=== PATIENT | male | born 1985 | race Caucasian/White ===

== ENCOUNTER 2017-03-11 16:56 | Emergency (ER) | payer MEDICARE, OTHER ==
[~2017-03-11] VITALS: Ht 182.9 cm; Wt 59.9 kg
[~2017-03-11 16:56] MED LIST: ALBU90OI INH; ANDROGEL1.25 GM TOP; AZIT250 PO; Amoxicillin500 MG PO; Ativan1 MG PO; CIPRO500 MG PO; CLOT10 SS; DIAZ5 PO; DOXY100 PO; Desyrel50 MG PO; Dilantin 100 m100 MG PO; EPIN.3I IM; Ensure Plus237 ML PO; HYDR1TAB94 PO; IBUP800 PO; Keppra1000 MG PO; LEVE500 PO; LISI20 PO; LORA.5 PO; LORA1 PO; METPRE4DP PO; NICO7 TOP; Norco 7.5-3251 EACH PO; ONDA4ODT MM; ONDA8 PO; PARO10 PO; PHENY100ER PO; PRODEXEL PO; SULTRIDS PO; TIVICAY50 MG PO; Truvada Tablet1 EACH PO; Ventolin Soln3 ML INH; Vibramycin100 MG PO; Zithromax250 MG PO; [UNRECOGNIZED DRUG - OTHER] TOP
[2017-03-11 18:03] LABS: Source, Urine Clean Catch
[2017-03-11 18:10] LABS: Appearance, Urine Cloudy (Clear); Blood, Urine 4+ (Neg); Color, Urine Amber (P-Yellow); Glucose Qualitative, Urine Neg (Neg); Ketones, Urine 1+ (Neg); Leukocyte Esterase, Urine 3+ (Neg); Nitrite, Urine Pos (Neg); Protein, Urine 3+ (Neg); Urobilinogen, Urine 3+ (Normal)
[2017-03-11 18:13] LABS: Bilirubin, Urine 1+ (Neg)
[2017-03-11 18:15] LABS: Bacteria Many /hpf; Red Blood Cells, Urine 0-2 /hpf (0-2); Squamous Epithelial Cells Not Seen /hpf (Few); White Blood Cells, Urine TNTC /hpf (0-5)
[2017-03-11 18:25] LABS: BASOPHILS ABSOLUTE AUTO 0.02 K/mm3 (0.00-0.23); BASOPHILS PERCENT AUTO 0 % (0-2); EOSINOPHILS ABSOLUTE AUTO 0.08 K/mm3 (0.00-0.68); EOSINOPHILS PERCENT AUTO 1 % (0-6); Hematocrit 41.6 % (37.0-53.0); Hemoglobin 15.3 g/dL (13.5-17.5); IMMATURE GRAN ABSOLUTE AUTO 0.04 K/mm3 (0.00-0.10); IMMATURE GRAN PERCENT AUTO 0 % (0-1); LYMPHOCYTES PERCENT AUTO 12 % (21-46); MONOCYTES ABSOLUTE AUTO 1.27 K/mm3 (0.16-1.47); MONOCYTES PERCENT AUTO 10 % (4-13); Mean Corpuscular HGB 33.9 pg (26.0-34.0); Mean Corpuscular HGB Conc 36.8 g/dL (31.5-36.5); Mean Corpuscular Volume 92 fL (80-100); Mean Platelet Volume 9.5 fL (9.1-12.4); NEUTROPHILS ABSOLUTE AUTO 10.27 K/mm3 (1.96-9.15); NEUTROPHILS PERCENT AUTO 77 % (41-73); Platelet Count 253 K/mm3 (150-400); RDW Coefficient Variation 12.4 % (11.7-14.2); RDW Standard Deviation 42.2 fL (35.1-46.3); Red Blood Cell Count 4.51 M/mm3 (4.30-5.90); White Blood Cell Count 13.28 K/mm3 (4.00-11.30)
[2017-03-11 18:36] LABS: Alanine Aminotransfer (ALT/SGP 18 U/L (12-78); Albumin, Blood 4.1 g/dL (3.4-5.0); Albumin/Globulin Ratio 1.1 (0.8-1.8); Alk Phos 83 U/L (50-136); Anion Gap 10 mmol/L (6-16); Aspartate Aminotrans (AST/SGOT 16 U/L (12-37); Bilirubin, Total 1.2 mg/dL (0.1-1.0); Blood Urea Nitrogen 15 mg/dL (8-24); Bun/Creatinine Ratio 13.4 (12.0-20.0); CO2, Blood 24 mmol/L (21-32); Chloride, Blood 99 mmol/L (98-108); Creatinine, Blood 1.12 mg/dL (0.60-1.20); Globulin, Blood 3.7 g/dL (2.2-4.0); Glomerular Filtration Rate >60 (60-); Glucose, Blood 103 mg/dL (70-99); Potassium, Blood 3.7 mmol/L (3.5-5.5); Sodium, Blood 133 mmol/L (136-145); Total Protein, Blood 7.8 g/dL (6.4-8.2)
[2017-03-11] MEDS ORDERED: Cipro500 MG PO (20:17)
[2017-03-11] MEDS ORDERED: Norco 5-325 Ta1 EACH PO (20:19)
== END 2017-03-11 20:40 | disposition home or self-care (01) ==
LOC: ER 16:56
PROVIDERS: Physician Assistant
DX: N10 Acute pyelonephritis (principal); F17.200 Nicotine dependence, unspecified, uncomplicated; B20 Human immunodeficiency virus [HIV] disease; D72.829 Elevated white blood cell count, unspecified; R11.2 Nausea with vomiting, unspecified; Z88.5 Allergy status to narcotic agent; Z91.030 Bee allergy status; Z88.8 Allergy status to other drugs, medicaments and biological substances; Z79.899 Other long term (current) drug therapy; Z87.01 Personal history of pneumonia (recurrent)
CPT/HCPCS: 36415; 76770; 80053; 81000; 81001; 85025; 87077; 87086; 87186; 96361; 96365; 96375; 96376; 99284; J0696; J2405; J3010; J7030

== ENCOUNTER 2017-09-17 14:44 | Emergency (ER) | payer MEDICARE, OTHER ==
[~2017-09-17] VITALS: Ht 182.9 cm; Wt 59.0 kg
[~2017-09-17 14:44] MED LIST changes: +Cipro500 MG PO; +Norco 5-325 Ta1 EACH PO
[2017-09-17] MEDS ORDERED: Pepcid20 MG PO (15:30)
[2017-09-17] MEDS ORDERED: (None)20 M1 PO (15:30)
== END 2017-09-17 15:41 | disposition home or self-care (01) ==
LOC: ER 14:44
DX: T63.441A Toxic effect of venom of bees, accidental (unintentional), initial encounter (principal); F17.210 Nicotine dependence, cigarettes, uncomplicated; Z91.030 Bee allergy status; Z88.5 Allergy status to narcotic agent; Z88.8 Allergy status to other drugs, medicaments and biological substances; Z79.899 Other long term (current) drug therapy
CPT/HCPCS: 96372; 99283; J2930; Q0163

== ENCOUNTER → 2018-05-07 | Outpatient (CLI) | payer MEDICARE, OTHER ==
[~2018-05-07] MED LIST changes: +(None)20 M1 PO; +Pepcid20 MG PO
[2018-05-07 13:21] LABS: Appearance, Urine Clear (Clear); Bilirubin, Urine Neg (Neg); Blood, Urine Neg (Neg); Color, Urine Yellow (P-Yellow); Glucose Qualitative, Urine Neg (Neg); Ketones, Urine Neg (Neg); Leukocyte Esterase, Urine Neg (Neg); Nitrite, Urine Neg (Neg); Protein, Urine Neg (Neg); Specific Gravity, Urine 1.005 (1.003-1.022); Urobilinogen, Urine NORM (Normal)
== END | disposition home or self-care (01) ==
LOC: LAB SRC 09:15 → LAB SHORT 09:15
PROVIDERS: Registered Nurse
DX: N23 Unspecified renal colic (principal)
CPT/HCPCS: 81003

== ENCOUNTER 2018-05-15 19:09 | Emergency (ER) | payer MEDICARE, OTHER ==
[~2018-05-15] VITALS: Ht 175.3 cm; Wt 57.6 kg
[2018-05-15 19:56] LABS: Influenza A Negative (NEGATIVE); Influenza B Negative (NEGATIVE)
[2018-05-15] MEDS ORDERED: Zithromax250 MG PO (20:36)
== END 2018-05-15 20:50 | disposition home or self-care (01) ==
LOC: ER 19:09
PROVIDERS: Physician Assistant
DX: J44.1 Chronic obstructive pulmonary disease with (acute) exacerbation (principal); B20 Human immunodeficiency virus [HIV] disease; F17.210 Nicotine dependence, cigarettes, uncomplicated; Z88.5 Allergy status to narcotic agent; Z91.030 Bee allergy status; Z88.8 Allergy status to other drugs, medicaments and biological substances; Z79.899 Other long term (current) drug therapy
CPT/HCPCS: 71046; 87804; 94640; 99285-25

== ENCOUNTER 2018-10-02 00:26 | Day surgery (SDC) | payer MEDICARE, OTHER ==
[2018-10-02] MEDS ORDERED: ONDA8 PO (09:49)
== END 2018-10-02 09:56 | disposition home or self-care (01) ==
LOC: ATC 00:26
DX: R42 Dizziness and giddiness (principal); M85.89 Other specified disorders of bone density and structure, multiple sites; I10 Essential (primary) hypertension; B20 Human immunodeficiency virus [HIV] disease; J45.909 Unspecified asthma, uncomplicated; F17.210 Nicotine dependence, cigarettes, uncomplicated; Z88.5 Allergy status to narcotic agent; Z88.8 Allergy status to other drugs, medicaments and biological substances; Z94.81 Bone marrow transplant status
CPT/HCPCS: 36415; 80400; 82533; 96372; J0834

== ENCOUNTER 2018-10-24 11:14 | Emergency (ER) | payer MEDICARE, OTHER | END 2018-10-24 12:02 | disposition left against medical advice (07) | LOC: ER 11:14 | DX: Z53.21 Procedure and treatment not carried out due to patient leaving prior to being seen by health care provider (principal); R07.9 Chest pain, unspecified ==

== ENCOUNTER → 2019-03-05 | Outpatient (CLI) | payer MEDICARE, OTHER ==
[2019-03-05 09:54] LABS: Source, Urine Clean Catch
[2019-03-05 12:50] LABS: Appearance, Urine Clear (Clear); Bilirubin, Urine Neg (Neg); Blood, Urine Neg (Neg); Color, Urine Yellow (P-Yellow); Glucose Qualitative, Urine Neg (Neg); Ketones, Urine Neg (Neg); Leukocyte Esterase, Urine Neg (Neg); Nitrite, Urine Neg (Neg); Protein, Urine 1+ (Neg); Specific Gravity, Urine 1.015 (1.003-1.022); Urobilinogen, Urine NORM (Normal)
== END | disposition home or self-care (01) ==
LOC: LAB SHORT 09:52 → LAB SRC 09:52 → LAB FUT 03-03 15:40 → EDSTATUS 03-03 15:40
PROVIDERS: Urology
DX: R31.0 Gross hematuria (principal)
CPT/HCPCS: 87086; 88108

== ENCOUNTER 2019-04-10 06:54 | Emergency (ER) | payer MEDICARE, OTHER ==
[~2019-04-10] VITALS: Ht 182.9 cm; Wt 56.7 kg
[2019-04-10 07:23] LABS: BASOPHILS ABSOLUTE AUTO 0.09 K/mm3 (0.00-0.23); BASOPHILS PERCENT AUTO 1 % (0-2); EOSINOPHILS ABSOLUTE AUTO 0.04 K/mm3 (0.00-0.68); EOSINOPHILS PERCENT AUTO 0 % (0-6); Hematocrit 46.9 % (37.0-53.0); Hemoglobin 16.4 g/dL (13.5-17.5); IMMATURE GRAN PERCENT AUTO 1 % (0-1); LYMPHOCYTES ABSOLUTE AUTO 2.28 K/mm3 (0.84-5.20); LYMPHOCYTES PERCENT AUTO 19 % (21-46); MONOCYTES ABSOLUTE AUTO 0.84 K/mm3 (0.16-1.47); MONOCYTES PERCENT AUTO 7 % (4-13); Mean Corpuscular HGB 33.9 pg (26.0-34.0); Mean Corpuscular Volume 97 fL (80-100); Mean Platelet Volume 9.7 fL (9.1-12.4); NEUTROPHILS ABSOLUTE AUTO 8.46 K/mm3 (1.96-9.15); NEUTROPHILS PERCENT AUTO 72 % (41-73); Platelet Count 230 K/mm3 (150-400); RDW Coefficient Variation 12.3 % (11.7-14.2); RDW Standard Deviation 43.8 fL (35.1-46.3); Red Blood Cell Count 4.84 M/mm3 (4.30-5.90); White Blood Cell Count 11.81 K/mm3 (4.00-11.30)
[2019-04-10 07:47] LABS: Alanine Aminotransfer (ALT/SGP 26 U/L (12-78); Albumin, Blood 4.7 g/dL (3.4-5.0); Anion Gap 14 mmol/L (6-16); Aspartate Aminotrans (AST/SGOT 32 U/L (12-37); Blood Urea Nitrogen 12 mg/dL (8-24); CO2, Blood 18 mmol/L (21-32); Calcium, Blood 9.5 mg/dL (8.5-10.1); Chloride, Blood 109 mmol/L (98-108); Creatinine, Blood 1.09 mg/dL (0.60-1.20); Glomerular Filtration Rate >60 (60-); Glucose, Blood 105 mg/dL (70-99); Potassium, Blood 3.2 mmol/L (3.5-5.5); Sodium, Blood 141 mmol/L (136-145)
[2019-04-10 07:48] LABS: Albumin/Globulin Ratio 1.4 (0.8-1.8); Alk Phos 71 U/L (50-136); Bilirubin, Total 0.9 mg/dL (0.1-1.0); Globulin, Blood 3.3 g/dL (2.2-4.0)
== END 2019-04-10 09:13 | disposition home or self-care (01) ==
LOC: ER 06:54
PROVIDERS: Emergency Medicine
DX: R56.9 Unspecified convulsions (principal); E87.6 Hypokalemia; F15.90 Other stimulant use, unspecified, uncomplicated; B20 Human immunodeficiency virus [HIV] disease; Z88.5 Allergy status to narcotic agent; Z79.899 Other long term (current) drug therapy
CPT/HCPCS: 71045; 80053; 85025; 93005; 93010; 96360; 99284-25; J7030

== ENCOUNTER 2019-04-30 02:35 | Emergency (ER) | payer MEDICARE, OTHER ==
[~2019-04-30] VITALS: Ht 182.9 cm; Wt 56.7 kg
[2019-04-30 02:54] LABS: BASOPHILS ABSOLUTE AUTO 0.07 K/mm3 (0.00-0.23); BASOPHILS PERCENT AUTO 1 % (0-2); EOSINOPHILS ABSOLUTE AUTO 0.39 K/mm3 (0.00-0.68); EOSINOPHILS PERCENT AUTO 5 % (0-6); Hematocrit 43.5 % (37.0-53.0); Hemoglobin 15.3 g/dL (13.5-17.5); IMMATURE GRAN ABSOLUTE AUTO 0.01 K/mm3 (0.00-0.10); IMMATURE GRAN PERCENT AUTO 0 % (0-1); LYMPHOCYTES ABSOLUTE AUTO 3.87 K/mm3 (0.84-5.20); LYMPHOCYTES PERCENT AUTO 45 % (21-46); MONOCYTES ABSOLUTE AUTO 0.53 K/mm3 (0.16-1.47); MONOCYTES PERCENT AUTO 6 % (4-13); Mean Corpuscular HGB 33.6 pg (26.0-34.0); Mean Corpuscular HGB Conc 35.2 g/dL (31.5-36.5); Mean Corpuscular Volume 96 fL (80-100); Mean Platelet Volume 10.1 fL (9.1-12.4); NEUTROPHILS ABSOLUTE AUTO 3.76 K/mm3 (1.96-9.15); NEUTROPHILS PERCENT AUTO 44 % (41-73); Platelet Count 244 K/mm3 (150-400); RDW Coefficient Variation 12.2 % (11.7-14.2); RDW Standard Deviation 42.5 fL (35.1-46.3); Red Blood Cell Count 4.55 M/mm3 (4.30-5.90); White Blood Cell Count 8.63 K/mm3 (4.00-11.30)
[2019-04-30] MEDS ORDERED: BIKTARVY 50-201 EACH PO (03:10)
[2019-04-30] MEDS ORDERED: ZOLOFT25 MG PO (03:10)
[2019-04-30 03:12] LABS: Alanine Aminotransfer (ALT/SGP 23 U/L (12-78); Albumin, Blood 4.2 g/dL (3.4-5.0); Albumin/Globulin Ratio 1.4 (0.8-1.8); Alk Phos 76 U/L (50-136); Anion Gap 11 mmol/L (6-16); Aspartate Aminotrans (AST/SGOT 36 U/L (12-37); Bilirubin, Total 0.4 mg/dL (0.1-1.0); Blood Urea Nitrogen 9 mg/dL (8-24); Bun/Creatinine Ratio 8.2 (12.0-20.0); CO2, Blood 21 mmol/L (21-32); Calcium, Blood 9.1 mg/dL (8.5-10.1); Chloride, Blood 108 mmol/L (98-108); Ethanol (Alcohol), Blood, Med 135 mg/dL; Globulin, Blood 3.1 g/dL (2.2-4.0); Glomerular Filtration Rate >60 (60-); Glucose, Blood 92 mg/dL (70-99); Potassium, Blood 3.9 mmol/L (3.5-5.5); Sodium, Blood 140 mmol/L (136-145); Total Protein, Blood 7.3 g/dL (6.4-8.2)
== END 2019-04-30 04:09 | disposition home or self-care (01) ==
LOC: ER 02:35
PROVIDERS: Emergency Medicine
DX: F44.5 Conversion disorder with seizures or convulsions (principal); B20 Human immunodeficiency virus [HIV] disease; F17.210 Nicotine dependence, cigarettes, uncomplicated
CPT/HCPCS: 80053; 85025; G0480

== ENCOUNTER 2019-06-25 13:59 | Emergency (ER) | payer MEDICARE, OTHER ==
[~2019-06-25] VITALS: Ht 182.9 cm; Wt 49.9 kg
[~2019-06-25 13:59] MED LIST changes: +BIKTARVY 50-201 EACH PO; +ZOLOFT25 MG PO
== END 2019-06-25 14:37 | disposition home or self-care (01) ==
LOC: ER 13:59
DX: F44.5 Conversion disorder with seizures or convulsions (principal); F17.210 Nicotine dependence, cigarettes, uncomplicated; Z91.030 Bee allergy status; Z88.5 Allergy status to narcotic agent; Z88.8 Allergy status to other drugs, medicaments and biological substances; Z79.899 Other long term (current) drug therapy
CPT/HCPCS: 99284

== ENCOUNTER 2019-09-01 01:37 | Emergency (ER) | payer MEDICARE, OTHER ==
[~2019-09-01] VITALS: Ht 182.9 cm; Wt 53.1 kg
[2019-09-01] MEDS ORDERED: SERT50 PO (01:54)
[2019-09-01 02:40] LABS: BASOPHILS ABSOLUTE AUTO 0.04 K/mm3 (0.00-0.23); BASOPHILS PERCENT AUTO 1 % (0-2); EOSINOPHILS ABSOLUTE AUTO 0.21 K/mm3 (0.00-0.68); EOSINOPHILS PERCENT AUTO 4 % (0-6); Hematocrit 39.6 % (37.0-53.0); Hemoglobin 13.7 g/dL (13.5-17.5); IMMATURE GRAN ABSOLUTE AUTO 0.01 K/mm3 (0.00-0.10); IMMATURE GRAN PERCENT AUTO 0 % (0-1); LYMPHOCYTES ABSOLUTE AUTO 1.28 K/mm3 (0.84-5.20); LYMPHOCYTES PERCENT AUTO 21 % (21-46); MONOCYTES ABSOLUTE AUTO 0.43 K/mm3 (0.16-1.47); MONOCYTES PERCENT AUTO 7 % (4-13); Mean Corpuscular HGB 31.9 pg (26.0-34.0); Mean Corpuscular HGB Conc 34.6 g/dL (31.5-36.5); Mean Corpuscular Volume 92 fL (80-100); Mean Platelet Volume 9.9 fL (9.1-12.4); NEUTROPHILS ABSOLUTE AUTO 4.07 K/mm3 (1.96-9.15); NEUTROPHILS PERCENT AUTO 67 % (41-73); Platelet Count 150 K/mm3 (150-400); RDW Coefficient Variation 12.4 % (11.7-14.2); RDW Standard Deviation 42.3 fL (35.1-46.3); Red Blood Cell Count 4.29 M/mm3 (4.30-5.90); White Blood Cell Count 6.04 K/mm3 (4.00-11.30)
[2019-09-01 02:57] LABS: Alanine Aminotransfer (ALT/SGP 17 U/L (12-78); Albumin, Blood 3.9 g/dL (3.4-5.0); Albumin/Globulin Ratio 1.6 (0.8-1.8); Alk Phos 53 U/L (50-136); Anion Gap 3 mmol/L (6-16); Aspartate Aminotrans (AST/SGOT 21 U/L (12-37); Bilirubin, Total 0.5 mg/dL (0.1-1.0); Blood Urea Nitrogen 8 mg/dL (8-24); Bun/Creatinine Ratio 7.4 (12.0-20.0); CO2, Blood 28 mmol/L (21-32); Calcium, Blood 8.3 mg/dL (8.5-10.1); Chloride, Blood 110 mmol/L (98-108); Creatinine, Blood 1.08 mg/dL (0.60-1.20); Globulin, Blood 2.5 g/dL (2.2-4.0); Glomerular Filtration Rate >60 (60-); Glucose, Blood 114 mg/dL (70-99); Potassium, Blood 3.2 mmol/L (3.5-5.5); Sodium, Blood 141 mmol/L (136-145); Total Protein, Blood 6.4 g/dL (6.4-8.2)
[2019-09-01] MEDS ORDERED: HYDHCL25 PO (03:02)
== END 2019-09-01 03:14 | disposition home or self-care (01) ==
LOC: ER 01:37
PROVIDERS: Emergency Medicine
DX: R56.9 Unspecified convulsions (principal); F41.9 Anxiety disorder, unspecified; Z91.030 Bee allergy status; Z88.8 Allergy status to other drugs, medicaments and biological substances; Z79.899 Other long term (current) drug therapy; B20 Human immunodeficiency virus [HIV] disease; F17.210 Nicotine dependence, cigarettes, uncomplicated
CPT/HCPCS: 80053; 83735; 85025; 99284

== ENCOUNTER 2019-11-26 19:48 | Emergency (ER) | payer MEDICARE, OTHER | END 2019-11-26 22:51 | disposition home or self-care (01) | LOC: ER 19:48 | DX: L73.9 Follicular disorder, unspecified (principal); F17.210 Nicotine dependence, cigarettes, uncomplicated; Z21 Asymptomatic human immunodeficiency virus [HIV] infection status; Z91.030 Bee allergy status; Z88.5 Allergy status to narcotic agent; Z88.8 Allergy status to other drugs, medicaments and biological substances; Z79.899 Other long term (current) drug therapy ==

== ENCOUNTER 2020-02-07 18:06 | Emergency (ER) | payer MEDICARE, OTHER ==
[~2020-02-07] VITALS: Ht 182.9 cm; Wt 54.4 kg
[~2020-02-07 18:06] MED LIST changes: +BIKTARVY 50-201 EAC1 PO; +HYDHCL25 PO; +SERT50 PO; +TRAZ100 PO
[2020-02-07] MEDS ORDERED: LORA2 PO (18:17)
== END 2020-02-07 18:33 | disposition home or self-care (01) ==
LOC: ER 18:06
DX: F44.5 Conversion disorder with seizures or convulsions (principal); F17.210 Nicotine dependence, cigarettes, uncomplicated; Z21 Asymptomatic human immunodeficiency virus [HIV] infection status
CPT/HCPCS: 96374; 99284-25; J2060

== ENCOUNTER 2020-03-25 22:39 | Emergency (ER) | payer MEDICARE, OTHER ==
[~2020-03-25] VITALS: Ht 182.9 cm; Wt 65.8 kg
[~2020-03-25 22:39] MED LIST changes: +LORA2 PO
[2020-03-25 23:06] LABS: BASOPHILS ABSOLUTE AUTO 0.07 K/mm3 (0.00-0.23); BASOPHILS PERCENT AUTO 1 % (0-2); EOSINOPHILS ABSOLUTE AUTO 0.17 K/mm3 (0.00-0.68); EOSINOPHILS PERCENT AUTO 2 % (0-6); Hematocrit 40.6 % (37.0-53.0); IMMATURE GRAN ABSOLUTE AUTO 0.01 K/mm3 (0.00-0.10); IMMATURE GRAN PERCENT AUTO 0 % (0-1); LYMPHOCYTES PERCENT AUTO 53 % (21-46); MONOCYTES ABSOLUTE AUTO 0.47 K/mm3 (0.16-1.47); MONOCYTES PERCENT AUTO 7 % (4-13); Mean Corpuscular HGB 32.1 pg (26.0-34.0); Mean Corpuscular HGB Conc 34.5 g/dL (31.5-36.5); Mean Corpuscular Volume 93 fL (80-100); Mean Platelet Volume 9.4 fL (9.1-12.4); NEUTROPHILS ABSOLUTE AUTO 2.63 K/mm3 (1.96-9.15); NEUTROPHILS PERCENT AUTO 37 % (41-73); Platelet Count 219 K/mm3 (150-400); RDW Coefficient Variation 12.6 % (11.7-14.2); RDW Standard Deviation 43.9 fL (35.1-46.3); Red Blood Cell Count 4.36 M/mm3 (4.30-5.90); White Blood Cell Count 7.15 K/mm3 (4.00-11.30)
[2020-03-25 23:19] LABS: Alanine Aminotransfer (ALT/SGP 22 U/L (12-78); Albumin, Blood 4.1 g/dL (3.4-5.0); Albumin/Globulin Ratio 1.5 (0.8-1.8); Alk Phos 60 U/L (50-136); Anion Gap 12 mmol/L (6-16); Aspartate Aminotrans (AST/SGOT 21 U/L (12-37); Bilirubin, Total 0.7 mg/dL (0.1-1.0); Blood Urea Nitrogen 11 mg/dL (8-24); Bun/Creatinine Ratio 8.2 (12.0-20.0); CO2, Blood 22 mmol/L (21-32); Calcium, Blood 8.6 mg/dL (8.5-10.1); Chloride, Blood 108 mmol/L (98-108); Creatinine, Blood 1.34 mg/dL (0.60-1.20); Ethanol (Alcohol), Blood, Med <3 mg/dL; Globulin, Blood 2.7 g/dL (2.2-4.0); Glomerular Filtration Rate 50 (60-); Glucose, Blood 66 mg/dL (70-99); Potassium, Blood 3.2 mmol/L (3.5-5.5); Sodium, Blood 142 mmol/L (136-145); Total Protein, Blood 6.8 g/dL (6.4-8.2)
[2020-03-25] MEDS ORDERED: BIKTARVY 50-201 EAC1 PO (23:24)
[2020-03-25] MEDS ORDERED: Ativan1 MG PO (23:25)
[2020-03-26 00:19] LABS: U Amphetamine Screen Not Detected; U Barbituate Screen Not Detected; U Benzodiazapine Screen Not Detected; U Buprenorphine Screen Not Detected; U Cannabinoids Screen DETECTED; U Cocaine Screen Not Detected; U Methadone Screen Not Detected; U Methamphetamine Screen Not Detected; U Opiates Screen Not Detected; U Oxycodone Screen Not Detected; U Phencyclidine Screen Not Detected; U Propoxyphene Screen Not Detected
== END 2020-03-26 01:12 | disposition home or self-care (01) ==
LOC: EDBD 22:39 → ER 22:39
PROVIDERS: Emergency Medicine
DX: R56.9 Unspecified convulsions (principal); S00.03XA Contusion of scalp, initial encounter; W18.30XA Fall on same level, unspecified, initial encounter
CPT/HCPCS: 36415; 70450; 72125; 80053; 83605; 85025; 96365; 96375; 99284-25; G0480; J1885; J1953; J7030

== ENCOUNTER → 2020-05-06 | Outpatient (CLI) | payer MEDICARE, OTHER ==
[~2020-05-06] MED LIST changes: +HYDHCL25
== END | disposition home or self-care (01) ==
LOC: PLD 12:42 → LAB SHORT 12:42
DX: D22.5 Melanocytic nevi of trunk (principal)
CPT/HCPCS: 88305

== ENCOUNTER 2020-05-26 09:19 | Emergency (ER) | payer MEDICARE, OTHER ==
[~2020-05-26] VITALS: Ht 182.9 cm; Wt 59.0 kg
[~2020-05-26 09:19] MED LIST changes: -HYDHCL25
[2020-05-26 10:17] LABS: BASOPHILS ABSOLUTE AUTO 0.07 K/mm3 (0.00-0.23); BASOPHILS PERCENT AUTO 1 % (0-2); EOSINOPHILS ABSOLUTE AUTO 0.23 K/mm3 (0.00-0.68); EOSINOPHILS PERCENT AUTO 4 % (0-6); Hematocrit 42.3 % (37.0-53.0); Hemoglobin 15.5 g/dL (13.5-17.5); IMMATURE GRAN ABSOLUTE AUTO 0.01 K/mm3 (0.00-0.10); IMMATURE GRAN PERCENT AUTO 0 % (0-1); LYMPHOCYTES ABSOLUTE AUTO 1.93 K/mm3 (0.84-5.20); LYMPHOCYTES PERCENT AUTO 33 % (21-46); MONOCYTES ABSOLUTE AUTO 0.37 K/mm3 (0.16-1.47); MONOCYTES PERCENT AUTO 6 % (4-13); Mean Corpuscular HGB Conc 36.6 g/dL (31.5-36.5); Mean Corpuscular Volume 90 fL (80-100); Mean Platelet Volume 9.4 fL (9.1-12.4); NEUTROPHILS ABSOLUTE AUTO 3.31 K/mm3 (1.96-9.15); NEUTROPHILS PERCENT AUTO 56 % (41-73); Platelet Count 186 K/mm3 (150-400); RDW Coefficient Variation 12.6 % (11.7-14.2); RDW Standard Deviation 41.5 fL (35.1-46.3); White Blood Cell Count 5.92 K/mm3 (4.00-11.30)
[2020-05-26 10:37] LABS: Alanine Aminotransfer (ALT/SGP 19 U/L (12-78); Albumin, Blood 3.8 g/dL (3.4-5.0); Albumin/Globulin Ratio 1.3 (0.8-1.8); Alk Phos 57 U/L (50-136); Anion Gap 5 mmol/L (6-16); Aspartate Aminotrans (AST/SGOT 19 U/L (12-37); Bilirubin, Total 0.4 mg/dL (0.1-1.0); Blood Urea Nitrogen 10 mg/dL (8-24); Bun/Creatinine Ratio 9.4 (12.0-20.0); CO2, Blood 26 mmol/L (21-32); Calcium, Blood 8.3 mg/dL (8.5-10.1); Chloride, Blood 110 mmol/L (98-108); Creatinine, Blood 1.06 mg/dL (0.60-1.20); Glomerular Filtration Rate >60 (60-); Glucose, Blood 102 mg/dL (70-99); Potassium, Blood 4.1 mmol/L (3.5-5.5); Sodium, Blood 141 mmol/L (136-145); Total Protein, Blood 6.8 g/dL (6.4-8.2)
[2020-05-26 12:20] LABS: Source, Urine Clean Catch
[2020-05-26 12:24] LABS: Appearance, Urine Clear (Clear); Bilirubin, Urine Neg (Neg); Blood, Urine Neg (Neg); Color, Urine Yellow (P-Yellow); Glucose Qualitative, Urine Neg (Neg); Ketones, Urine Neg (Neg); Nitrite, Urine Neg (Neg); Urobilinogen, Urine NORM (Normal)
[2020-05-26 12:26] LABS: Leukocyte Esterase, Urine Neg (Neg); Protein, Urine Neg (Neg); pH, Urine 6.5 (5.0-8.0)
== END 2020-05-26 13:13 | disposition home or self-care (01) ==
LOC: ER 09:19
PROVIDERS: Emergency Medicine
DX: K62.5 Hemorrhage of anus and rectum (principal); F17.210 Nicotine dependence, cigarettes, uncomplicated; Z91.030 Bee allergy status; Z88.8 Allergy status to other drugs, medicaments and biological substances
CPT/HCPCS: 36415; 74177; 80053; 81003; 85025; 99284-25; Q9967

== ENCOUNTER 2020-06-01 07:31 | Emergency (ER) | payer MEDICARE, OTHER ==
[~2020-06-01] VITALS: Ht 182.9 cm; Wt 59.0 kg
[2020-06-01 08:20] LABS: Calcium, Ionized (POC) 1.19 mmol/L (1.10-1.46); Chloride (POC) 104 mmol/L (98-108); Creatinine (POC) 1.3 mg/dL (0.8-1.3); Glucose (ISTAT POC) 103 mg/dL (70-99); Potassium (POC) 3.8 mmol/L (3.5-5.5); Sodium (POC) 142 mmol/L (135-148); Total CO2 (POC) 25 mmol/L (21-32)
== END 2020-06-01 09:51 | disposition home or self-care (01) ==
LOC: ER 07:31
PROVIDERS: Emergency Medicine
DX: R56.9 Unspecified convulsions (principal); F17.210 Nicotine dependence, cigarettes, uncomplicated; Z79.899 Other long term (current) drug therapy; Z88.5 Allergy status to narcotic agent; Z88.8 Allergy status to other drugs, medicaments and biological substances; Z91.030 Bee allergy status
CPT/HCPCS: 36415; 80047; 85014; 93005; 93010; 96374; 99284-25; J2405; J7030

== ENCOUNTER 2020-06-15 01:52 | Emergency (ER) | payer MEDICARE, OTHER ==
[~2020-06-15] VITALS: Ht 182.9 cm; Wt 56.7 kg
[2020-06-15] MEDS ORDERED: HYDHCL25 (02:10)
[2020-06-15] MEDS ORDERED: LEVE500 PO (03:23)
== END 2020-06-15 03:41 | disposition home or self-care (01) ==
LOC: ER 01:52
DX: R56.9 Unspecified convulsions (principal); F17.210 Nicotine dependence, cigarettes, uncomplicated; Z88.5 Allergy status to narcotic agent; Z88.8 Allergy status to other drugs, medicaments and biological substances; Z91.030 Bee allergy status
CPT/HCPCS: 99284; A9270

== ENCOUNTER 2020-10-14 08:42 | Emergency (ER) | payer MEDICARE, OTHER ==
[~2020-10-14] VITALS: Ht 182.9 cm; Wt 53.5 kg
[~2020-10-14 08:42] MED LIST changes: +HYDHCL25
[2020-10-14 09:44] LABS: BASOPHILS ABSOLUTE AUTO 0.07 K/mm3 (0.00-0.23); BASOPHILS PERCENT AUTO 1 % (0-2); EOSINOPHILS ABSOLUTE AUTO 0.36 K/mm3 (0.00-0.68); EOSINOPHILS PERCENT AUTO 6 % (0-6); Hematocrit 41.6 % (37.0-53.0); IMMATURE GRAN ABSOLUTE AUTO 0.01 K/mm3 (0.00-0.10); IMMATURE GRAN PERCENT AUTO 0 % (0-1); LYMPHOCYTES ABSOLUTE AUTO 1.27 K/mm3 (0.84-5.20); LYMPHOCYTES PERCENT AUTO 20 % (21-46); MONOCYTES ABSOLUTE AUTO 0.65 K/mm3 (0.16-1.47); MONOCYTES PERCENT AUTO 10 % (4-13); Mean Corpuscular HGB Conc 36.1 g/dL (31.5-36.5); Mean Corpuscular Volume 91 fL (80-100); Mean Platelet Volume 9.6 fL (9.1-12.4); NEUTROPHILS ABSOLUTE AUTO 4.16 K/mm3 (1.96-9.15); NEUTROPHILS PERCENT AUTO 64 % (41-73); Platelet Count 181 K/mm3 (150-400); RDW Coefficient Variation 12.2 % (11.7-14.2); RDW Standard Deviation 40.8 fL (35.1-46.3); Red Blood Cell Count 4.55 M/mm3 (4.30-5.90); White Blood Cell Count 6.52 K/mm3 (4.00-11.30)
[2020-10-14 10:06] LABS: Alanine Aminotransfer (ALT/SGP 20 U/L (12-78); Albumin, Blood 3.9 g/dL (3.4-5.0); Albumin/Globulin Ratio 1.3 (0.8-1.8); Alk Phos 59 U/L (50-136); Anion Gap 4 mmol/L (6-16); Aspartate Aminotrans (AST/SGOT 16 U/L (12-37); Bilirubin, Total 0.5 mg/dL (0.1-1.0); Blood Urea Nitrogen 11 mg/dL (8-24); Bun/Creatinine Ratio 9.1 (12.0-20.0); CO2, Blood 26 mmol/L (21-32); Calcium, Blood 8.7 mg/dL (8.5-10.1); Chloride, Blood 109 mmol/L (98-108); Creatinine, Blood 1.21 mg/dL (0.60-1.20); Globulin, Blood 3.1 g/dL (2.2-4.0); Glomerular Filtration Rate >60 (60-); Glucose, Blood 94 mg/dL (70-99); Potassium, Blood 3.9 mmol/L (3.5-5.5); Sodium, Blood 139 mmol/L (136-145)
[2020-10-15 15:11] LABS: % CD 4 POS. LYMPH. 25.3 % (30.8-58.5); ABSOLUTE CD 4 HELPER 329 /uL (359-1519); BASO (ABSOLUTE) 0.1 x10E3/uL (0.0-0.2); BASOS 1 % (Not Estab.); EOS 5 % (Not Estab.); EOS (ABSOLUTE) 0.3 x10E3/uL (0.0-0.4); HEMATOCRIT 42.2 % (37.5-51.0); HEMOGLOBIN 14.9 g/dL (13.0-17.7); IMMATURE GRANULOCYTES 0 % (Not Estab.); LYMPHS 20 % (Not Estab.); LYMPHS (ABSOLUTE) 1.3 x10E3/uL (0.7-3.1); MCH 33.7 pg (26.6-33.0); MCHC 35.3 g/dL (31.5-35.7); MCV 96 fL (79-97); MONOCYTES 11 % (Not Estab.); MONOCYTES(ABSOLUTE) 0.7 x10E3/uL (0.1-0.9); NEUTROPHILS 63 % (Not Estab.); NEUTROPHILS (ABSOLUTE) 4.1 x10E3/uL (1.4-7.0); PLATELETS 181 x10E3/uL (150-450); RBC 4.42 x10E6/uL (4.14-5.80); RDW 13.6 % (11.6-15.4); WBC 6.4 x10E3/uL (3.4-10.8)
== END 2020-10-14 10:54 | disposition home or self-care (01) ==
LOC: ER 08:42
PROVIDERS: Physician Assistant
DX: J20.8 Acute bronchitis due to other specified organisms (principal); B20 Human immunodeficiency virus [HIV] disease; F17.210 Nicotine dependence, cigarettes, uncomplicated; Z88.5 Allergy status to narcotic agent; Z88.8 Allergy status to other drugs, medicaments and biological substances; Z91.038 Other insect allergy status
CPT/HCPCS: 36415; 71045; 80053; 83605; 85025; 86361; 99284-25

== ENCOUNTER 2021-06-09 12:36 | Emergency (ER) | payer MEDICARE, OTHER ==
[~2021-06-09] VITALS: Ht 182.9 cm; Wt 72.6 kg
[2021-06-09 13:05] LABS: BASOPHILS ABSOLUTE AUTO 0.04 K/mm3 (0.00-0.23); BASOPHILS PERCENT AUTO 1 % (0-2); EOSINOPHILS ABSOLUTE AUTO 0.07 K/mm3 (0.00-0.68); EOSINOPHILS PERCENT AUTO 1 % (0-6); Hematocrit 42.5 % (37.0-53.0); Hemoglobin 15.5 g/dL (13.5-17.5); IMMATURE GRAN ABSOLUTE AUTO 0.01 K/mm3 (0.00-0.10); IMMATURE GRAN PERCENT AUTO 0 % (0-1); LYMPHOCYTES ABSOLUTE AUTO 2.24 K/mm3 (0.84-5.20); LYMPHOCYTES PERCENT AUTO 35 % (21-46); MONOCYTES ABSOLUTE AUTO 0.43 K/mm3 (0.16-1.47); MONOCYTES PERCENT AUTO 7 % (4-13); Mean Corpuscular HGB 33.6 pg (26.0-34.0); Mean Corpuscular HGB Conc 36.5 g/dL (31.5-36.5); Mean Corpuscular Volume 92 fL (80-100); Mean Platelet Volume 9.8 fL (9.1-12.4); NEUTROPHILS ABSOLUTE AUTO 3.62 K/mm3 (1.96-9.15); NEUTROPHILS PERCENT AUTO 57 % (41-73); Platelet Count 206 K/mm3 (150-400); RDW Standard Deviation 40.7 fL (35.1-46.3); Red Blood Cell Count 4.61 M/mm3 (4.30-5.90); White Blood Cell Count 6.41 K/mm3 (4.00-11.30)
[2021-06-09 13:39] LABS: Source, Urine Clean Catch
[2021-06-09 13:40] LABS: Alanine Aminotransfer (ALT/SGP 20 U/L (12-78); Albumin, Blood 4.2 g/dL (3.4-5.0); Albumin/Globulin Ratio 1.5 (0.8-1.8); Alk Phos 49 U/L (50-136); Anion Gap 8 mmol/L (6-16); Aspartate Aminotrans (AST/SGOT 19 U/L (12-37); Bilirubin, Total 0.5 mg/dL (0.1-1.0); Blood Urea Nitrogen 13 mg/dL (8-24); Bun/Creatinine Ratio 12.6 (12.0-20.0); CO2, Blood 25 mmol/L (21-32); Calcium, Blood 9.1 mg/dL (8.5-10.1); Chloride, Blood 108 mmol/L (98-108); Creatinine, Blood 1.03 mg/dL (0.60-1.20); Globulin, Blood 2.8 g/dL (2.2-4.0); Glomerular Filtration Rate >60 (60-); Glucose, Blood 101 mg/dL (70-99); Magnesium, Blood 2.1 mg/dL (1.6-2.4); Potassium, Blood 3.8 mmol/L (3.5-5.5); Sodium, Blood 141 mmol/L (136-145)
[2021-06-09 13:43] LABS: Ethanol (Alcohol), Blood, Med <3 mg/dL
[2021-06-09 13:55] LABS: Appearance, Urine Clear (Clear); Bilirubin, Urine Neg (Neg); Blood, Urine 2+ (Neg); Color, Urine Yellow (P-Yellow); Glucose Qualitative, Urine Neg (Neg); Ketones, Urine Neg (Neg); Leukocyte Esterase, Urine Neg (Neg); Nitrite, Urine Neg (Neg); Protein, Urine Neg (Neg); Urobilinogen, Urine NORM (Normal)
[2021-06-09 14:17] LABS: Bacteria Rare /hpf; Squamous Epithelial Cells Rare /hpf (Few); White Blood Cells, Urine 0-2 /hpf (0-5)
[2021-06-09 14:21] LABS: U Amphetamine Screen Not Detected; U Barbituate Screen Not Detected; U Benzodiazapine Screen Not Detected; U Buprenorphine Screen Not Detected; U Cannabinoids Screen DETECTED; U Cocaine Screen Not Detected; U Methadone Screen Not Detected; U Methamphetamine Screen Not Detected; U Opiates Screen Not Detected; U Oxycodone Screen Not Detected; U Phencyclidine Screen Not Detected; U Propoxyphene Screen Not Detected
== END 2021-06-09 15:17 | disposition home or self-care (01) ==
LOC: ER 12:36
PROVIDERS: Emergency Medicine
DX: R56.9 Unspecified convulsions (principal); Z88.5 Allergy status to narcotic agent; Z88.8 Allergy status to other drugs, medicaments and biological substances; Z91.030 Bee allergy status; Z79.899 Other long term (current) drug therapy; Z21 Asymptomatic human immunodeficiency virus [HIV] infection status; J45.909 Unspecified asthma, uncomplicated; F17.210 Nicotine dependence, cigarettes, uncomplicated
CPT/HCPCS: 70450; 71045; 80053; 81001; 83735; 85025; 93005; 93010; 96365; 99285-25; G0480; J1953; J7030

== ENCOUNTER 2022-11-09 12:29 | Emergency (ER) | payer OTHER ==
[~2022-11-09] VITALS: Ht 182.9 cm; Wt 53.1 kg
[2022-11-09 12:58] VITALS: BP 145/100
== END 2022-11-09 13:32 | disposition home or self-care (01) ==
LOC: ER 12:29
DX: G40.909 Epilepsy, unspecified, not intractable, without status epilepticus (principal); J45.909 Unspecified asthma, uncomplicated; Z88.5 Allergy status to narcotic agent; Z88.8 Allergy status to other drugs, medicaments and biological substances; Z91.030 Bee allergy status; Z79.890 Hormone replacement therapy; Z79.899 Other long term (current) drug therapy; F17.210 Nicotine dependence, cigarettes, uncomplicated
CPT/HCPCS: 99284; A9270

== ENCOUNTER 2023-06-26 13:31 | Emergency (ER) | payer BC ==
[~2023-06-26] VITALS: Ht 182.9 cm; Wt 61.2 kg
[2023-06-26 14:27] LABS: Influenza A, PCR NEGATIVE (NEGATIVE); Influenza B, PCR NEGATIVE (NEGATIVE); Resp Syncytial Virus, PCR NEGATIVE (NEGATIVE); SARS-Cov-2 (COVID-19) PCR, MMC NEGATIVE (NEGATIVE)
[2023-06-26 18:38] VITALS: BP 112/78
[2023-06-26 18:53] LABS: Hematocrit 43.8 % (37.0-53.0); Mean Corpuscular HGB 33.5 pg (26.0-34.0); Mean Corpuscular HGB Conc 36.5 g/dL (31.5-36.5); Mean Corpuscular Volume 92 fL (80-100); Mean Platelet Volume 9.8 fL (9.1-12.4); Platelet Count 157 K/mm3 (150-400); RDW Coefficient Variation 11.7 % (11.7-14.2); RDW Standard Deviation 39.7 fL (35.1-46.3); Red Blood Cell Count 4.78 M/mm3 (4.30-5.90); White Blood Cell Count 5.68 K/mm3 (4.00-11.30)
[2023-06-26 19:14] LABS: Albumin, Blood 4.2 g/dL (3.4-5.0); Albumin/Globulin Ratio 1.3 (0.8-1.8); BASOPHILS ABSOLUTE MAN 0.05 K/mm3 (0.00-0.23); BASOPHILS PERCENT MAN 1 % (0-2); Bilirubin, Total 0.4 mg/dL (0.1-1.0); Bun/Creatinine Ratio 9.6 (12.0-20.0); Calcium, Blood 9.3 mg/dL (8.5-10.1); Creatinine, Blood 1.04 mg/dL (0.60-1.20); EOSINOPHILS PERCENT MAN 0 % (0-6); Globulin, Blood 3.2 g/dL (2.2-4.0); LYMPHOCYTES % ATYPICAL MANUAL 2 % (0-0); LYMPHOCYTES ABSOLUTE MAN 2.04 K/mm3 (0.84-5.20); LYMPHOCYTES PERCENT MAN 34 % (21-46); MONOCYTES ABSOLUTE MAN 0.39 K/mm3 (0.16-1.47); MONOCYTES PERCENT MAN 7 % (4-13); NEUTROPHILS ABSOLUTE MAN 3.18 K/mm3 (1.96-9.15); Potassium, Blood 3.4 mmol/L (3.5-5.5); SEG NEUTROPHILS PERCENT MAN 56 % (41-73); TOTAL CELLS COUNTED 100; Total Protein, Blood 7.4 g/dL (6.4-8.2)
[2023-06-26 19:47] LABS: Source, Urine Clean Catch
[2023-06-26 19:54] LABS: Appearance, Urine Clear (Clear); Bilirubin, Urine Neg (Neg); Blood, Urine Neg (Neg); Color, Urine Yellow (P-Yellow); Glucose Qualitative, Urine Neg (Neg); Ketones, Urine Neg (Neg); Leukocyte Esterase, Urine Neg (Neg); Nitrite, Urine Neg (Neg); Protein, Urine Neg (Neg); Urobilinogen, Urine NORM (Normal)
== END 2023-06-26 20:38 | disposition home or self-care (01) ==
LOC: ER 13:31
PROVIDERS: Nurse Practitioner; Physician Assistant
DX: J40 Bronchitis, not specified as acute or chronic (principal); B34.9 Viral infection, unspecified; R50.9 Fever, unspecified; F17.210 Nicotine dependence, cigarettes, uncomplicated; J45.909 Unspecified asthma, uncomplicated; G40.909 Epilepsy, unspecified, not intractable, without status epilepticus; Z88.5 Allergy status to narcotic agent; Z91.030 Bee allergy status; Z88.8 Allergy status to other drugs, medicaments and biological substances; Z79.899 Other long term (current) drug therapy
CPT/HCPCS: 0241U; 71046; 80053; 81003; 85025; 99283-25

== ENCOUNTER 2023-07-02 17:40 | Emergency (ER) | payer BC ==
[~2023-07-02] VITALS: Ht 182.9 cm; Wt 54.0 kg
[2023-07-02] MEDS ORDERED: LORazepam 2 MG/ML 1ML Injection IV ONE (17:50)
[2023-07-02] MEDS ORDERED: Amoxicillin 875 MG Tab PO ONE (19:35)
[2023-07-02] MEDS ORDERED: BENZ100A PO (19:38)
[2023-07-02] MEDS ORDERED: Amoxicillin875 MG PO (19:38)
[2023-07-02 20:00] VITALS: BP 125/81
[2023-07-02] MEDS ORDERED: Acetaminophen 500 MG Tab PO ONE (20:15)
== END 2023-07-02 20:15 | disposition home or self-care (01) ==
LOC: ER 17:40
DX: J18.9 Pneumonia, unspecified organism (principal); Z88.5 Allergy status to narcotic agent; Z88.8 Allergy status to other drugs, medicaments and biological substances; Z91.030 Bee allergy status; Z79.899 Other long term (current) drug therapy; Z21 Asymptomatic human immunodeficiency virus [HIV] infection status; G40.909 Epilepsy, unspecified, not intractable, without status epilepticus; F17.210 Nicotine dependence, cigarettes, uncomplicated
CPT/HCPCS: 71045; 96374; 99284-25; A9270; J2060

== ENCOUNTER 2024-03-27 20:42 | Emergency (ER) | payer BC ==
[~2024-03-27] VITALS: Ht 182.9 cm; Wt 57.1 kg
[~2024-03-27 20:42] MED LIST changes: +Amoxicillin875 MG PO; +BENZ100A PO
[2024-03-27 21:32] LABS: BASOPHILS ABSOLUTE AUTO 0.04 K/mm3 (0.00-0.23); BASOPHILS PERCENT AUTO 1 % (0-2); EOSINOPHILS ABSOLUTE AUTO 0.13 K/mm3 (0.00-0.68); EOSINOPHILS PERCENT AUTO 3 % (0-6); Hematocrit 41.7 % (37.0-53.0); Hemoglobin 15.3 g/dL (13.5-17.5); IMMATURE GRAN ABSOLUTE AUTO 0.01 K/mm3 (0.00-0.10); IMMATURE GRAN PERCENT AUTO 0 % (0-1); LYMPHOCYTES ABSOLUTE AUTO 1.38 K/mm3 (0.84-5.20); LYMPHOCYTES PERCENT AUTO 31 % (21-46); MONOCYTES ABSOLUTE AUTO 0.37 K/mm3 (0.16-1.47); MONOCYTES PERCENT AUTO 8 % (4-13); Mean Corpuscular HGB 31.9 pg (26.0-34.0); Mean Corpuscular HGB Conc 36.7 g/dL (31.5-36.5); Mean Corpuscular Volume 87 fL (80-100); NEUTROPHILS PERCENT AUTO 56 % (41-73); Platelet Count 168 K/mm3 (150-400); RDW Coefficient Variation 12.8 % (11.7-14.2); RDW Standard Deviation 40.9 fL (35.1-46.3); Red Blood Cell Count 4.79 M/mm3 (4.30-5.90); White Blood Cell Count 4.43 K/mm3 (4.00-11.30)
[2024-03-27 21:54] LABS: Albumin/Globulin Ratio 1.1 (0.8-1.8); Bilirubin, Total 0.7 mg/dL (0.1-1.0); Bun/Creatinine Ratio 9.2 (12.0-20.0); Creatinine, Blood 0.87 mg/dL (0.60-1.20); Globulin, Blood 3.5 g/dL (2.2-4.0); Potassium, Blood 3.5 mmol/L (3.5-5.5); Total Protein, Blood 7.5 g/dL (6.4-8.2)
[2024-03-27 22:09] LABS: Source, Urine Clean Catch
[2024-03-27 22:13] LABS: Appearance, Urine Clear (Clear); Bilirubin, Urine Neg (Neg); Blood, Urine 5+ (Neg); Color, Urine Yellow (P-Yellow); Glucose Qualitative, Urine Neg (Neg); Ketones, Urine Neg (Neg); Leukocyte Esterase, Urine Neg (Neg); Nitrite, Urine Neg (Neg); Protein, Urine 1+ (Neg); Urobilinogen, Urine NORM (Normal)
[2024-03-27 22:22] LABS: Bacteria Few /hpf; Squamous Epithelial Cells Few /hpf (Few); White Blood Cells, Urine 0-2 /hpf (0-5)
[2024-03-27] MEDS ORDERED: NS 1,000 ML IV SCH (23:20)
[2024-03-28 00:04] VITALS: BP 115/76
== END 2024-03-28 00:05 | disposition home or self-care (01) ==
LOC: ER 20:42
PROVIDERS: Student in an Organized Health Care Education/Training Program
DX: K52.9 Noninfective gastroenteritis and colitis, unspecified (principal); E86.0 Dehydration; J45.909 Unspecified asthma, uncomplicated; G40.909 Epilepsy, unspecified, not intractable, without status epilepticus; F17.210 Nicotine dependence, cigarettes, uncomplicated; Z91.030 Bee allergy status; Z88.5 Allergy status to narcotic agent; Z88.8 Allergy status to other drugs, medicaments and biological substances; Z79.899 Other long term (current) drug therapy; Z21 Asymptomatic human immunodeficiency virus [HIV] infection status; Z59.89 Other problems related to housing and economic circumstances
CPT/HCPCS: 74177; 80053; 81001; 85025; 93005; 93010; 99284-25; J7030; Q9967

== ENCOUNTER 2024-11-18 20:26 | Emergency (ER) | payer BC, OTHER ==
[~2024-11-18] VITALS: Ht 182.9 cm; Wt 59.0 kg
[2024-11-18] MEDS ORDERED: LORazepam 2 MG/ML 1ML Injection IV ONE ×2 (20:30→20:55)
[2024-11-18 20:38] LABS: Calcium, Ionized (POC) 1.07 mmol/L (1.10-1.46); Chloride (POC) 102 mmol/L (98-108); Creatinine (POC) 1.3 mg/dL (0.8-1.3); Glucose (ISTAT POC) 101 mg/dL (70-99); Hematocrit (POC) 40.0 % (41.0-53.0); Hemoglobin (POC) 13.6 g/dL (13.5-17.5); Potassium (POC) 3.6 mmol/L (3.5-5.5); Sodium (POC) 139 mmol/L (135-148); Total CO2 (POC) 26 mmol/L (21-32)
[2024-11-18 20:42] LABS: BASOPHILS ABSOLUTE AUTO 0.07 K/mm3 (0.00-0.23); BASOPHILS PERCENT AUTO 1 % (0-2); EOSINOPHILS ABSOLUTE AUTO 0.14 K/mm3 (0.00-0.68); EOSINOPHILS PERCENT AUTO 2 % (0-6); Hematocrit 38.5 % (37.0-53.0); Hemoglobin 14.2 g/dL (13.5-17.5); IMMATURE GRAN ABSOLUTE AUTO 0.01 K/mm3 (0.00-0.10); IMMATURE GRAN PERCENT AUTO 0 % (0-1); LYMPHOCYTES ABSOLUTE AUTO 1.84 K/mm3 (0.84-5.20); LYMPHOCYTES PERCENT AUTO 28 % (21-46); MONOCYTES ABSOLUTE AUTO 0.55 K/mm3 (0.16-1.47); MONOCYTES PERCENT AUTO 8 % (4-13); Mean Corpuscular HGB Conc 36.9 g/dL (31.5-36.5); Mean Corpuscular Volume 87 fL (80-100); NEUTROPHILS ABSOLUTE AUTO 3.99 K/mm3 (1.96-9.15); NEUTROPHILS PERCENT AUTO 60 % (41-73); NRBC ABSOLUTE 0.00 K/mm3 (0.00-0.02); NRBC Auto 0.0 /100 WBC (0.0-0.2); Platelet Count 180 K/mm3 (150-400); RDW Coefficient Variation 13.6 % (11.7-14.2); RDW Standard Deviation 42.7 fL (35.1-46.3)
[2024-11-18] MEDS ORDERED: CALCIUM GLUC IN NACL, ISO-OSM 50 ML IV ONE (20:45)
[2024-11-18] MEDS ORDERED: NS 500 ML IV SCH (20:45)
[2024-11-18] MEDS ORDERED: Haloperidol Lactate Inj. 5 MG/ML Injection IV ONE (20:55)
[2024-11-18 21:04] LABS: Alanine Aminotransfer (ALT/SGP 18.0 U/L (12-78); Albumin, Blood 3.7 g/dL (3.4-5.0); Albumin/Globulin Ratio 1.0 (0.8-1.8); Anion Gap 7.0 mmol/L (3-11); Aspartate Aminotrans (AST/SGOT 23.0 U/L (12-37); Bilirubin, Total 0.5 mg/dL (0.1-1.0); Blood Urea Nitrogen 9.0 mg/dL (8-24); CO2, Blood 27.0 mmol/L (21-32); Calcium, Blood 8.6 mg/dL (8.5-10.1); Chloride, Blood 105.0 mmol/L (98-108); Creatinine, Blood 1.16 mg/dL (0.60-1.20); Globulin, Blood 3.7 g/dL (2.2-4.0); Glucose, Blood 102.0 mg/dL (70-99); Potassium, Blood 3.6 mmol/L (3.5-5.5); Sodium, Blood 135.0 mmol/L (136-145); Total Protein, Blood 7.4 g/dL (6.4-8.2)
[2024-11-18 21:51] LABS: Influenza A, PCR NEGATIVE (NEGATIVE); Influenza B, PCR NEGATIVE (NEGATIVE); Resp Syncytial Virus, PCR NEGATIVE (NEGATIVE); SARS-Cov-2 (COVID-19) PCR, MMC NEGATIVE (NEGATIVE)
[2024-11-19 00:15] VITALS: BP 98/67
== END 2024-11-19 00:30 | disposition home or self-care (01) ==
LOC: ER 20:26
PROVIDERS: Emergency Medicine
DX: G40.909 Epilepsy, unspecified, not intractable, without status epilepticus (principal); E83.51 Hypocalcemia; J45.909 Unspecified asthma, uncomplicated; F17.210 Nicotine dependence, cigarettes, uncomplicated; Z21 Asymptomatic human immunodeficiency virus [HIV] infection status; Z91.030 Bee allergy status; Z88.5 Allergy status to narcotic agent; Z88.8 Allergy status to other drugs, medicaments and biological substances; Z79.899 Other long term (current) drug therapy
CPT/HCPCS: 71045; 80047; 80053; 85014; 85025; 87637; 93005; 93010; 96365; 96375; 99285-25; A9270; J0612; J1630; J1953; J2060; J7030

== ENCOUNTER 2025-02-19 09:50 | Emergency (ER) | payer OTHER ==
[~2025-02-19] VITALS: Ht 182.9 cm; Wt 59.4 kg
[2025-02-19 10:15] VITALS: BP 122/102
[2025-02-19] MEDS ORDERED: NS 1,000 ML IV SCH (10:20)
[2025-02-19] MEDS ORDERED: CefTRIAXone Sodium 1,000 MG in NS 100 ML IV ONE (10:20)
[2025-02-19 10:30] LABS: BASOPHILS ABSOLUTE AUTO 0.05 K/mm3 (0.00-0.23); BASOPHILS PERCENT AUTO 1 % (0-2); EOSINOPHILS ABSOLUTE AUTO 0.14 K/mm3 (0.00-0.68); EOSINOPHILS PERCENT AUTO 2 % (0-6); Hematocrit 42.7 % (37.0-53.0); Hemoglobin 15.7 g/dL (13.5-17.5); IMMATURE GRAN ABSOLUTE AUTO 0.01 K/mm3 (0.00-0.10); IMMATURE GRAN PERCENT AUTO 0 % (0-1); LYMPHOCYTES ABSOLUTE AUTO 2.06 K/mm3 (0.84-5.20); LYMPHOCYTES PERCENT AUTO 28 % (21-46); MONOCYTES ABSOLUTE AUTO 0.42 K/mm3 (0.16-1.47); MONOCYTES PERCENT AUTO 6 % (4-13); Mean Corpuscular HGB Conc 36.8 g/dL (31.5-36.5); Mean Corpuscular Volume 90 fL (80-100); NEUTROPHILS ABSOLUTE AUTO 4.74 K/mm3 (1.96-9.15); NEUTROPHILS PERCENT AUTO 64 % (41-73); NRBC ABSOLUTE 0.00 K/mm3 (0.00-0.02); NRBC Auto 0.0 /100 WBC (0.0-0.2); Platelet Count 206 K/mm3 (150-400); RDW Coefficient Variation 12.7 % (11.7-14.2); RDW Standard Deviation 42.3 fL (35.1-46.3)
[2025-02-19 10:57] LABS: Anion Gap 5.0 mmol/L (3-11); Blood Urea Nitrogen 8.0 mg/dL (8-24); CO2, Blood 28.0 mmol/L (21-32); Calcium, Blood 9.0 mg/dL (8.5-10.1); Chloride, Blood 109.0 mmol/L (98-108); Creatinine, Blood 1.14 mg/dL (0.60-1.20); Glucose, Blood 115.0 mg/dL (70-99); Potassium, Blood 4.2 mmol/L (3.5-5.5); Sodium, Blood 138.0 mmol/L (136-145)
[2025-02-19] MEDS ORDERED: CEFP200 PO (12:31)
== END 2025-02-19 13:03 | disposition home or self-care (01) ==
LOC: ER 09:50
PROVIDERS: Student in an Organized Health Care Education/Training Program
DX: T81.41XA Infection following a procedure, superficial incisional surgical site, initial encounter (principal); L03.221 Cellulitis of neck; Z91.030 Bee allergy status; Z88.5 Allergy status to narcotic agent; F17.210 Nicotine dependence, cigarettes, uncomplicated; Z79.899 Other long term (current) drug therapy
CPT/HCPCS: 70491; 80048; 85025; 96365-59; 99284-25; J0696; J7030; Q9967